=== PATIENT | female | born 1985 | race Caucasian/White ===

== ENCOUNTER → 2017-01-14 | Outpatient (CLI) | payer MEDICAID ==
--- NOTE | 2017-01-14 16:53 | US ---
EXAMINATION TYPE: US transvaginal DATE OF EXAM: 01/14/2017 COMPARISON: NONE CLINICAL HISTORY: Menorrhagia, N92.0 Dysmenn N94.6. Pelvic pain with clots during cycle for a few mon ths TECHNIQUE: TV Date of LMP: 12/30/2016 EXAM MEASUREMENTS: Uterus: 8.7 x 5.3 x 4.4 cm Endometrial Stripe: 1.0 cm Right Ovary: 2.3 x 1.6 x 1.9 cm Left Ovary: 3.3 x 2.7 x 2.4 cm 1. Uterus: Anteverted wnl 2. Endometrium: wnl 3. Right Ovary: wnl 4. Left Ovary: wnl 5. Bilateral Adnexa: wnl 6. Posterior cul-de-sac: wnl IMPRESSION: Negative transvaginal pelvic sonogram. No adnexal mass or free fluid.
== END | disposition home or self-care (01) ==
LOC: RADUSWWP 16:13
PROVIDERS: ATTEND Obstetrics & Gynecology
DX: N94.6 Dysmenorrhea, unspecified (principal); N92.0 Excessive and frequent menstruation with regular cycle
CPT/HCPCS: 76830

== ENCOUNTER → 2017-03-29 | Outpatient (CLI) | payer MEDICAID ==
[2017-03-29 07:25] LABS: Basophils % (A) 0 %; CH 29.4; CHCM 33.7; Eosinophils # (A) 0.3 k/uL (0-0.7); Eosinophils % (A) 3 %; HCT 41.7 % (34.0-46.0); HDW 2.65; HGB 14.2 gm/dL (11.4-16.0); Luc # (Auto) 0.16; Luc % (Auto) 2; Lymphocytes # (A) 2.2 k/uL (1.0-4.8); Lymphocytes % (A) 22 %; MCH 29.8 pg (25.0-35.0); MCV 87.7 fL (80.0-100.0); Mean Platelet Volume 7.2; Monocytes # (A) 0.6 k/uL (0-1.0); Monocytes % (A) 6 %; Neutrophils # (A) 6.6 k/uL (1.3-7.7); Neutrophils % (A) 67 %; RBC 4.76 m/uL (3.80-5.40); RDW 12.9 % (11.5-15.5); WBC 9.8 k/uL (3.8-10.6); WBC (Perox) 10.06
== END | disposition home or self-care (01) ==
LOC: LABPAT 06:44
PROVIDERS: ATTEND Obstetrics & Gynecology
DX: Z01.812 Encounter for preprocedural laboratory examination (principal)
CPT/HCPCS: 85025

== ENCOUNTER 2017-04-07 05:52 | Day surgery (SDC) | payer MEDICAID ==
[2017-04-01 15:18] VITALS: BMI 29.9
--- NOTE | 2017-04-06 07:06 | P.HPOB ---
History of Present Illness H&P Date: 04/06/17 Chief Complaint: Menorrhagia. This patient is a pleasant 31 yr female with long standing menorrhagia and dysmenorrhea. She does not want hormonal treatment and has tried NSAIDs without relief. She is requesting endometrial ablation for treatment. Pelvic ultrasound was normal and her partner has had a vasectomy. Review of Systems Constitutional: Denies chills, Denies fever Cardiovascular: Denies chest pain, Denies shortness of breath Respiratory: Denies cough Gastrointestinal: Denies abdominal pain, Denies diarrhea, Denies nausea, Denies vomiting Genitourinary: Reports as per HPI Menstruation: Reports as per HPI, Reports period heavy Past Medical History Additional Past Medical History / Comment(s): HEAVY PERIODS History of Any Multi-Drug Resistant Organisms: None Reported Past Surgical History: Breast Surgery Additional Past Surgical History / Comment(s): Breast biopsy 2011 Past Anesthesia/Blood Transfusion Reactions: Previous Problems w/ Anesthesia Additional Past Anesthesia/Blood Transfusion Reaction / Comment(s): EMESIS POST EPIDURAL WITH LABOR Past Psychological History: No Psychological Hx Reported Smoking Status: Current every day smoker Past Alcohol Use History: None Reported Past Drug Use History: None Reported - Past Family History Mother Family Medical History: No Reported History Medications and Allergies Home Medications Medication Instructions Recorded Confirmed Type No Known Home Medications [No 04/01/17 04/01/17 History Known Home Medications] Allergies Allergy/AdvReac Type Severity Reaction Status Date / Time amoxicillin Allergy Anaphylaxis Verified 04/01/17 15:13 Exam - OBG Physical Exam Abdomen: bowel sounds normal, no diffuse tenderness, no bruit present, no guarding noted, no hepatomegaly, no splenomegaly, no mass Vulva: both: normal Vagina: normal moisture, no discharge Cervix: no lesion, no discharge Uterus: normal size Results Pelvic ultrasound on January 14 was normal. Assessment and Plan (1) Menorrhagia Narrative/Plan: This is a pleasant 31 yr female with menorrhagia and dysmenorrhea requesting Novasure endometrial ablation for treatment. I have discussed this surgery and risks in detail: infection, bleeding, possible uterine perforation and/or thermal injury. All of the patients questions were answered and a written consent was obtained. Plan is hysteroscopy, D&C and Novasure endometrial ablation. Status: Chronic
[~2017-04-07 05:52] MED LIST: Pre Op ABX Message 1 EACH MISC MISCELLANE ONE
[2017-04-07] MEDS ORDERED: ONDANSETRON 4 MG/2 ML VIAL IVP ONE (06:04)
[2017-04-07] MEDS ORDERED: LACTATED RINGERS 1,000 ML IV SCH (06:04)
[2017-04-07] MEDS ORDERED: DEXAMETHASONE SOD PHOSPHATE 10 MG/ML 1 ML VIAL IV ONE (06:04)
[2017-04-07] MEDS ORDERED: LIDOCAINE 1% 20 ML VIAL (10MG/ML) FOR IV START INTRADERMA ONE (06:30)
[2017-04-07] MEDS ORDERED: PROPOFOL 10 MG/ML 20 ML VIAL IV ONE (07:26)
[2017-04-07] MEDS ORDERED: MIDAZOLAM 2 MG/2 ML VIAL ONE (07:26)
[2017-04-07] MEDS ORDERED: LIDOCAINE 1% INJ 10MG/ML (20 ML MDV) ONE (07:26)
[2017-04-07] MEDS ORDERED: fentaNYL (PF) 50 MCG/ML 2 ML AMP ONE (07:26)
--- NOTE | 2017-04-07 07:58 | P.OP ---
Date of Procedure: 04/07/17 Preoperative Diagnosis: Menorrhagia and dysmenorrhea Postoperative Diagnosis: Same Procedure(s) Performed: #1: Hysteroscopy. #2: Dilation and curettage. #3: NovaSure endometrial ablation. Anesthesia: MAC Surgeon: Caio Herrera Estimated Blood Loss (ml): 10 Urine output (ml): 50 Pathology: other (Uterine curettings) Condition: stable Disposition: PACU Indications for Procedure: Please see dictated H&P for intimate details of this patient's admission. In brief summary this is a pleasant 31-year-old female with long-standing menorrhagia and dysmenorrhea requesting trial of endometrial ablation for treatment. Patient I have discussed the surgery and risks including risks of infection, bleeding, possible uterine perforation, and/or thermal injury. All the patient's questions have been answered and a written consent is obtained. Operative Findings: This patient had a normal-appearing endometrial cavity without evidence of polyps and/or fibroids. Description of Procedure: This patient is taken to the operating room where she is laid in the supine position. She subsequent undergoes general mask anesthesia without incident. With an adequate level of anesthesia she's placed in the dorsal lithotomy position. She has a vaginal perineal prep and drape. Examination under anesthesia shows a mid position uterus of normal size. A weighted speculum was placed in the posterior vagina. I drain the bladder for 50 mL of clear urine. The anterior lip of the cervix is then grasped with an Allis clamp. I gently sound the uterus to 8.2 cm. Gentle dilation is then done of the endocervix to allow the hysteroscope easily and the uterine cavity. Hysteroscopy is performed uterine cavity appears normal without evidence of polyps fibroids or other growths. The hysteroscope was then removed. Cavity length was calculated to be 6 cm. I then gently dilate the cervix to allow a sharp curette easily and uterine cavity a thorough but gentle 4 quadrant curettage is then done. The NovaSure device is then opened appears to be intact. It is seated in place at a length of 6 cm and a width of 3.8 cm. After passing the cavity integrity test, it is enabled at 125 W setting for 73 seconds. NovaSure device is then removed and appears to be intact. Hysteroscopy again is performed and the cavity appears to completely ablated up into the endocervix. With this done the procedure is ended. Allis clamp and weighted speculum was removed. All counts are correct 3. There are no complications. The patient is awakened from anesthesia and taken recovery room in satisfactory condition.
[2017-04-07] MEDS ORDERED: KETOROLAC 30 MG/ML 1 ML VIAL IVP ONE (08:00)
[2017-04-07 08:04] VITALS: TEMP 97.4
[2017-04-07] MEDS: HYDROmorphone 0.5 MG/0.5 ML SYRINGE IVP PRN ×2 (08:10→08:31)
[2017-04-07 08:55] VITALS: BP 102/72; PULSE 63; RESP 18
== END 2017-04-07 09:39 | disposition home or self-care (01) ==
LOC: OR 05:52
PROVIDERS: ATTEND Obstetrics & Gynecology
DX: N92.0 Excessive and frequent menstruation with regular cycle (principal); N94.6 Dysmenorrhea, unspecified; N85.00 Endometrial hyperplasia, unspecified; Z88.1 Allergy status to other antibiotic agents; F17.200 Nicotine dependence, unspecified, uncomplicated; Z79.1 Long term (current) use of non-steroidal anti-inflammatories (NSAID)
CPT/HCPCS: 58563; 81025; 88305; J2250; J1100; J2405; J2001; J3010; J1885; J2704; J1170

== ENCOUNTER → 2018-10-30 | Outpatient (CLI) | payer MEDICAID ==
--- NOTE | 2018-10-31 08:37 | MM ---
Reason for exam: clinical finding. History: Family history of breast cancer in maternal grandmother at age 70. Benign excisional biopsy of the right breast, 2008. Took hormonal contraceptives for 6 months beginning at age 22. Physical Findings: Nurse Summary: 1cm nodule in the right breast at 12 o'clock (nurse elaine). MG 3D Diag Mammo W/Cad NGUYEN Bilateral CC and MLO view(s) were taken. The breast tissue is extremely dense which could obscure a lesion on mammography. Previous mammotome biopsy in the right breast. There is no discrete abnormality including area of concern marked by BB. These results were verbally communicated with the patient and result sheet given to the patient on 10/30/18. ASSESSMENT: Incomplete: need additional imaging evaluation, BI-RAD 0 RECOMMENDATION: Ultrasound of the left breast.
--- NOTE | 2018-10-31 08:38 | USB ---
Reason for exam: additional evaluation requested from abnormal screening. History: Family history of breast cancer in maternal grandmother at age 70. Benign excisional biopsy of the right breast, 2008. Took hormonal contraceptives for 6 months beginning at age 22. US Breast Workup Limited LT Left limited breast ultrasound including focal area of concern, retroareolar and axilla demonstrates a 1.7 x 1.7 x 0.9cm oval, cystic lesion at 12 o'clock and a 1.7 x 1.6 x 1.6cm mixed lesion at 3 o'clock. These results were verbally communicated with the patient and result sheet given to the patient on 10/30/18. ASSESSMENT: Probably benign, BI-RAD 3 RECOMMENDATION: Ultrasound of the left breast in 6 months.
== END | disposition home or self-care (01) ==
LOC: RADMAMWWP 07:00
PROVIDERS: ATTEND Obstetrics & Gynecology
DX: R92.8 Other abnormal and inconclusive findings on diagnostic imaging of breast (principal); N63.10 Unspecified lump in the right breast, unspecified quadrant; N63.20 Unspecified lump in the left breast, unspecified quadrant; N64.4 Mastodynia
CPT/HCPCS: 77062; 77066

== ENCOUNTER → 2019-04-17 | Outpatient (CLI) | payer MEDICAID ==
--- NOTE | 2019-04-17 13:31 | USB ---
Reason for exam: follow-up at short interval from prior study. History: Family history of breast cancer in maternal grandmother at age 70. Benign excisional biopsy of the right breast, 2008. Took hormonal contraceptives for 6 months beginning at age 22. Physical Findings: Nurse Summary: prominent nodularity left upper inner quadrant, all soft, movable (nurse ts). US Breast Limited LT Left limited breast ultrasound including focal area of concern, retroareolar and axilla demonstrates a 2.0 x 1.1 x 1.8cm cystic lesion at 12 o'clock, prior 2.0 x 1.1 x 1.8cm on 10/30/18 and a 0.6 x 0.5 x 0.5cm cystic lesion at 3 o'clock, prior 1.7 x 1.6 x 1.6cm, involuting now. These results were verbally communicated with the patient and result sheet given to the patient on 04/17/19. ASSESSMENT: Benign, BI-RAD 2 RECOMMENDATION: Routine screening mammogram of both breasts at age 38. (or sooner if clinically indicated)
== END | disposition home or self-care (01) ==
LOC: RADUSWWP 08:09
PROVIDERS: ATTEND Surgery
DX: N60.09 Solitary cyst of unspecified breast (principal)

== ENCOUNTER → 2020-08-19 | Outpatient (CLI) | payer MEDICAID ==
[2020-08-19 15:36] LABS: Basophils # (A) 0.04 X 10*3/uL (0.00-0.10); Basophils % (A) 0.5 %; Eosinophils % (A) 2.4 %; HGB 13.3 g/dL (12.0-15.0); Lymphocytes # (A) 2.32 X 10*3/uL (0.90-5.00); MCH 30.5 pg (27.0-32.0); MCV 87.2 fL (80.0-97.0); Monocytes # (A) 0.54 X 10*3/uL (0.20-1.00); Monocytes % (A) 6.5 %; Neutrophils # (A) 5.16 X 10*3/uL (1.80-7.70); Neutrophils % (A) 62.4 %; Platelet Count 383 X 10*3/uL (140-440); RBC 4.36 X 10*6/uL (4.10-5.20); RDW 12.7 % (11.5-14.5); WBC 8.28 X 10*3/uL (4.50-10.00)
[2020-08-19 15:50] LABS: % Iron Saturation 25.41 (12.00-45.00); African American GFR (CKD) 94.7 (60.0-200.0); Albumin 4.9 g/dL (3.80-4.90); Albumin/Globulin Ratio 2.45 (1.60-3.17); Anion Gap 7.2 mmol/L (4.00-12.00); BUN/Creat Ratio 13.33 Ratio (12.00-20.00); Calcium 9.6 mg/dL (8.7-10.3); Carbon Dioxide 25.8 mmol/L (21.6-31.8); Chol/HDL Ratio 4.93; LDL Cholesterol,Calculated 124.4 mg/dL (0.0-131.0); Non-African American GFR(CKD) 81.7 (60.0-200.0); Potassium 4.1 mmol/L (3.5-5.5); Total Bilirubin 0.7 mg/dL (0.3-1.2); Total Protein 6.9 g/dL (6.2-8.2); VLDL Calculation 48.6 mg/dL (5.00-40.00)
[2020-08-19 15:58] LABS: T4, Free (Free Thyroxine) 0.9 ng/dL (0.80-1.80)
[2020-08-19 16:52] LABS: Insulin Level 21.7 mIU/mL (3.0-25.0)
[2020-08-19 17:11] LABS: Hemoglobin A1C 4.8 % (4.0-6.0)
== END | disposition home or self-care (01) ==
LOC: LABWHC1 08:41
PROVIDERS: ATTEND Family Medicine
DX: Z00.00 Encounter for general adult medical examination without abnormal findings (principal); E06.9 Thyroiditis, unspecified; L65.9 Nonscarring hair loss, unspecified
CPT/HCPCS: 36415; 80053; 80061; 82607; 82728; 82746; 83036; 83525; 83540; 83550; 84432; 84439; 84443; 84481; 84630; 85025; 86038; 86039; 86800

== ENCOUNTER → 2020-09-02 | Outpatient (CLI) | payer MEDICAID ==
--- NOTE | 2020-09-02 07:54 | US ---
EXAMINATION TYPE: US thyroid st tissue head/neck DATE OF EXAM: 09/02/2020 COMPARISON: US 02/25/2015 CLINICAL HISTORY: E06.3 AUTOIMMUNE THYROIDITIS. GLAND SIZE: Right Lobe: 5.1 x 1.1 x 1.2 cm Overall Parenchyma: heterogenous Left Lobe: 4.8 x 1.0 x 1.1 cm Overall Parenchyma: heterogeneous Isthmus Thickness: 0.4 cm NODULES RIGHT: # of nodules measured on right: 0 LEFT: # of nodules measured on left: 0 ISTHMUS: # of nodules measured in the isthmus: 0 Bilateral neck scanned, no evidence of lymphadenopathy. Heterogeneous normal-sized thyroid without discrete nodule. IMPRESSION: As above. No significant change from prior.
== END | disposition home or self-care (01) ==
LOC: RADUSWWP 07:08
PROVIDERS: ATTEND Family Medicine
DX: E06.3 Autoimmune thyroiditis (principal)
CPT/HCPCS: 76536

== ENCOUNTER → 2020-09-10 | Outpatient (CLI) | payer MEDICAID ==
[2020-09-10 09:52] LABS: Appearance,Urine Cloudy (Clear); Bilirubin,Urine Negative (Negative); Blood,Urine Small (Negative); Color,Urine Yellow; Glucose,Urine (UA) Negative (Negative); Ketones,Urine Negative (Negative); Leukocyte Esterase,Urine Large (Negative); Mucus,Urine Rare /hpf; Nitrite,Urine Negative (Negative); PH, Urine 5.5 (5.0-8.0); Protein,Urine Negative (Negative); RBC,Urine <1 /hpf (0-5); Specific Gravity,Urine 1.021 (1.001-1.035); Squamous Epithelial Cell,Urine <1 /hpf (0-4); Urobilinogen,Urine <2.0 mg/dL (<2.0); WBC,Urine <1 /hpf (0-5)
[2020-09-10 17:27] LABS: Centromere Antibody <0.2 AI; Centromere Antibody Interp NEGATIVE (NEGATIVE)
[2020-09-10 17:28] LABS: Anti-Smith Ab Interp NEGATIVE (NEGATIVE); Cardiolipin Ab IgG Interp NEGATIVE (NEGATIVE); Cardiolipin IgA Antibody 0.9 U/mL; Cyclic Citrull Pep IgG Unit 2.7 U/mL; Cyclic Citrullinated Pep IgG NEGATIVE (NEGATIVE); DNA Double-Stranded POSITIVE (NEGATIVE); Scleroderma SC-70 Ab <0.2 AI
[2020-09-10 17:29] LABS: Cardiolipin Ab IgM Interp NEGATIVE (NEGATIVE); Cardiolipin IgM Antibody 1.7 U/mL
[2020-09-10 21:13] LABS: Hepatitis B Surface Antigen Non-Reactive (Non-Reactive); Hepatitis C IgG Antibody Non-Reactive (Non-Reactive)
[2020-09-10 22:25] LABS: Protein, Total 6.9 g/dL (6.2-8.2)
[2020-09-10 23:17] LABS: Creatine Kinase 88 U/L (26-186); Rheumatoid Factor, Qnt <4 IU/mL (0-15); Uric Acid 5.6 mg/dL (2.9-7.7)
[2020-09-11 11:31] LABS: Free Kappa Lt Chain Qnt, Serum 0.92 mg/dL (0.33-1.94)
[2020-09-11 11:40] LABS: HLA B27 NEGATIVE
[2020-09-11 13:00] LABS: APTT 51 Sec(s) (<43); APTT 1:1 Mix 40 Sec(s) (<43); Dilute Russell Viper Venom 42 Sec(s) (<44)
[2020-09-11 13:39] LABS: Angiotensin-1 Converting Enz. 34 U/L (8-52)
[2020-09-11 15:10] LABS: C-ANCA <1:20 Titer (<1:20)
[2020-09-12 14:07] LABS: Histone Antibody 0.7 UNITS (<1.0)
[2020-09-12 14:43] LABS: Aldolase 4.6 U/L (1.2-7.6)
[2020-09-15 10:21] LABS: ANA Pattern Homogeneous
[2020-09-15 12:48] LABS: Albumin 4.28 g/dL (3.80-4.90); Gamma Globulin 0.88 g/dL (0.70-1.50)
== END | disposition home or self-care (01) ==
LOC: LABWHC1 07:14
PROVIDERS: ATTEND Internal Medicine Rheumatology
DX: R76.8 Other specified abnormal immunological findings in serum (principal)
CPT/HCPCS: 36415; 81001; 82085; 82164; 82306; 82550; 83516; 83520; 83883; 84165; 84550; 85613; 85730; 85732; 86038; 86039; 86147; 86160; 86162; 86200; 86225; 86235; 86255; 86334; 86431; 86803; 86812; 87340

== ENCOUNTER → 2020-09-12 | Outpatient (CLI) | payer MEDICAID ==
--- NOTE | 2020-09-12 13:28 | MM ---
Reason for exam: clinical finding. Last mammogram was performed 1 year and 10 months ago. History: Family history of breast cancer in maternal grandmother at age 70. Benign excisional biopsy of the right breast, 2008. Took hormonal contraceptives for 6 months beginning at age 22. Indicated problem(s): lump or thickening and pain in the left breast. Physical Findings: Nurse Summary: 1-2cm nodule in the left breast at 1-2 o'clock (nurse db). MG 3D Diag Mammo W/Cad NGUYEN Bilateral CC and MLO view(s) were taken. Prior study comparison: October 30, 2018, bilateral MG 3d diag mammo w/cad NGUYEN. The breast tissue is heterogeneously dense. This may lower the sensitivity of mammography. Finding: There is a typically benign 23 mm equal density (isodense), circumscribed mass located 4 cm from the nipple in the upper outer quadrant of the left breast. Previous mammotome biopsy in the right breast. New finding since October 30, 2018. These results were verbally communicated with the patient and result sheet given to the patient on 09/12/20. ASSESSMENT: Incomplete: need additional imaging evaluation, BI-RAD 0 RECOMMENDATION: Ultrasound of the left breast.
--- NOTE | 2020-09-12 13:32 | USB ---
Reason for exam: additional evaluation requested from abnormal screening. History: Family history of breast cancer in maternal grandmother at age 70. Benign excisional biopsy of the right breast, 2008. Took hormonal contraceptives for 6 months beginning at age 22. US Breast Limited LT Technologist: Ericka Sylvester Left limited breast ultrasound including focal area of concern, retroareolar and axilla demonstrates a 2.6 x 1.9 x 1.3cm oval, cystic lesion at 12 o'clock, septated versus cluster for which a cyst aspiration versus biopsy is recommended, a 2.3 x 2.1 x 1.6cm simple cystic lesion at 1 o'clock, a 0.8 x 0.6 x 0.4cm cystic cluster at 2 o'clock, a 0.8 x 1.0 x 0.7cm cystic lesion at 3 o'clock and a 0.9 x 1.2 x 0.6cm simple cystic lesion at 2 o'clock. Scanned 12-3 o'clock. These results were verbally communicated with the patient and result sheet given to the patient on 09/12/20. ASSESSMENT: Suspicious, BI-RAD 4 RECOMMENDATION: Aspiration of the left breast. (or) Ultrasound core biopsy of the left breast. Called Dr. Herrera's office with mammographic findings and has scheduled an appointment for the patient for 10/02/[address] Baugh. Biopsy scheduled for 09/25/20 at 10:30. PRELIMINARY REPORT CALLED AND FAXED TO DR. BAUGH ON 09/12/20.
== END | disposition home or self-care (01) ==
LOC: RADMAMWWP 07:34
PROVIDERS: ATTEND Obstetrics & Gynecology
DX: N63.21 Unspecified lump in the left breast, upper outer quadrant (principal); N60.02 Solitary cyst of left breast; Z80.3 Family history of malignant neoplasm of breast
CPT/HCPCS: 77062; 77066

== ENCOUNTER → 2020-09-25 | Day surgery (SDC) | payer MEDICAID ==
[2020-09-25 09:46] VITALS: RESP 16
[2020-09-25 11:35] VITALS: BP 137/78; PULSE 56; TEMP 98.3
--- NOTE | 2020-09-25 12:34 | USB ---
EXAMINATION TYPE: US breast aspiration single LT DATE OF EXAM: 09/25/2020 CLINICAL HISTORY: R92.8 ABN MAMMO. TECHNIQUE: Ultrasound guided vaccuum assisted cyst aspiration of left breast. COMPARISON: 09/12/20 US FINDINGS: The ultrasound guided core cyst aspiration was explained to the patient. The risks, benefits, alternatives were discussed. An informed consent was then obtained. Timeout was performed. The patient was placed in supine positioning for imaging and for the procedure. The overlying skin was prepped with betadine and sterilely draped in usual sterile fashion. Lidocaine 1% was used as anesthetic into the skin and deeper breast tissue up to area of concern in the breast. A small skin derek was made with surgical scalpel. Under ultrasound guidance, an 18 gauge vacuum assisted device was used to obtain left cyst aspiration. A biopsy clip was left in lesion. Wing clip was utilized. Good hemostasis was obtained with direct pressure. Discharge instructions were discussed with the patient. The patient will follow up with the referring physician for results. Postprocedure mammogram: The patient was transferred to mammography for physician ordered post procedure mammogram for clip placement verification. The clip is in the expected region of the cyst aspiration. The patient tolerated the procedure well without any immediate complication. The patient was discharged to home in stable condition. IMPRESSION: 1. Successful ultrasound guided cyst aspiration left breast. Recommendations: 1. Recommendations are pending pathology results. Pathology Results: Benign LEFT BREAST, TWELVE O'CLOCK, ULTRASOUND GUIDED CYST ASPIRATION: Clusters of bland apocrine lining cells and ductal cells consistent with fibrocystic changes. Recommendation Follow up ultrasound of the left breast in 6 months. MAAME
--- NOTE | 2020-09-29 08:41 | MM ---
Reason for exam: additional evaluation requested from abnormal screening. Last mammogram was performed less than 1 month ago. History: Family history of breast cancer in maternal grandmother at age 70. Benign excisional biopsy of the right breast, 2008. Took hormonal contraceptives for 6 months beginning at age 22. MG Diagnostic Mammo LT Wo CAD CC and LM view(s) were taken of the left breast. Prior study comparison: September 12, 2020, bilateral MG 3d diag mammo w/cad NGUYEN. October 30, 2018, bilateral MG 3d diag mammo w/cad NGUYEN. ASSESSMENT: Post procedure mammogram for marker placement RECOMMENDATION: Ultrasound of the left breast in 6 months. PENDING PATHOLOGY RESULTS.
== END ==
LOC: RADUSWWP 09:29
PROVIDERS: ATTEND Surgery
DX: N60.12 Diffuse cystic mastopathy of left breast (principal); Z80.3 Family history of malignant neoplasm of breast
CPT/HCPCS: 88108; 88305; 77065; 76942; 19000; A4648; J2001

== ENCOUNTER → 2020-11-26 | Outpatient (CLI) | payer MEDICAID ==
[2020-11-26 16:45] LABS: T4, Free (Free Thyroxine) 1.1 ng/dL (0.80-1.80)
== END | disposition home or self-care (01) ==
LOC: LABWHC1 07:56
PROVIDERS: ATTEND Family Medicine
DX: E06.9 Thyroiditis, unspecified (principal)
CPT/HCPCS: 36415; 84439; 84443; 84481

== ENCOUNTER → 2020-12-24 | Outpatient (CLI) | payer MEDICAID ==
[2020-12-24 15:08] LABS: Appearance,Urine Clear (Clear); Bacteria,Urine Rare /hpf; Bilirubin,Urine Negative (Negative); Blood,Urine Negative (Negative); Color,Urine Yellow; Glucose,Urine (UA) Negative (Negative); Ketones,Urine Negative (Negative); Leukocyte Esterase,Urine Large (Negative); Nitrite,Urine Negative (Negative); Protein,Urine Negative (Negative); RBC,Urine 1 /hpf (0-5); Specific Gravity,Urine 1.016 (1.001-1.035); Squamous Epithelial Cell,Urine 4 /hpf (0-4); Urobilinogen,Urine <2.0 mg/dL (<2.0); WBC,Urine 1 /hpf (0-5)
[2020-12-24 17:36] LABS: Basophils # (A) 0.04 X 10*3/uL (0.00-0.10); Basophils % (A) 0.4 %; Eosinophils # (A) 0.31 X 10*3/uL (0.04-0.35); HCT 39.1 % (37.2-46.3); HGB 13.5 g/dL (12.0-15.0); Lymphocytes # (A) 3.06 X 10*3/uL (0.90-5.00); Lymphocytes % (A) 29.3 %; MCHC 34.5 g/dL (32.0-37.0); MCV 86.9 fL (80.0-97.0); Mean Platelet Volume 10.2 fL (9.5-12.2); Monocytes # (A) 0.76 X 10*3/uL (0.20-1.00); Monocytes % (A) 7.3 %; Neutrophils # (A) 6.24 X 10*3/uL (1.80-7.70); Neutrophils % (A) 59.5 %; Platelet Count 398 X 10*3/uL (140-440); RDW 12.8 % (11.5-14.5); WBC 10.46 X 10*3/uL (4.50-10.00)
[2020-12-24 19:18] LABS: Erythrocyte Sedimentation Rate 15 mm/Hr (0-20)
[2020-12-24 20:49] LABS: Anti-Smith Ab Interp NEGATIVE (NEGATIVE); DNA Double-Stranded POSITIVE (NEGATIVE); Scleroderma SC-70 Ab <0.2 AI
[2020-12-24 20:54] LABS: Cardiolipin Ab IgG Interp NEGATIVE (NEGATIVE); Cardiolipin Ab IgM Interp NEGATIVE (NEGATIVE); Cardiolipin IgA Antibody <2.0 U/mL; Cardiolipin IgM Antibody 2.2 U/mL; Cyclic Citrull Pep IgG Unit 2.5 U/mL; Cyclic Citrullinated Pep IgG NEGATIVE (NEGATIVE)
[2020-12-24 23:42] LABS: Protein, Total 7.2 g/dL (6.2-8.2)
[2020-12-25 00:01] LABS: African American GFR (CKD) 128.3 (60.0-200.0); Albumin 4.8 g/dL (3.80-4.90); Albumin/Globulin Ratio 1.92 (1.60-3.17); Anion Gap 12.3 mmol/L (4.00-12.00); BUN/Creat Ratio 15.71 Ratio (12.00-20.00); C Reactive Protein 0.4 mg/dL (0.0-0.8); Calcium 9.8 mg/dL (8.7-10.3); Carbon Dioxide 21.7 mmol/L (21.6-31.8); Globulin 2.5 g/dL (1.6-3.3); Non-African American GFR(CKD) 110.7 (60.0-200.0); Potassium 4.3 mmol/L (3.5-5.5); Total Bilirubin 0.7 mg/dL (0.3-1.2); Total Protein 7.3 g/dL (6.2-8.2)
[2020-12-25 00:09] LABS: T4, Free (Free Thyroxine) 1.2 ng/dL (0.80-1.80)
[2020-12-25 00:42] LABS: Hepatitis B Surface Antigen Non-Reactive (Non-Reactive); Hepatitis C IgG Antibody Non-Reactive (Non-Reactive)
[2020-12-25 11:22] LABS: APTT 41 Sec(s) (<43); Dilute Russell Viper Venom 41 Sec(s) (<44)
[2020-12-25 13:14] LABS: HLA B27 NEGATIVE
[2020-12-25 13:29] LABS: ANA Pattern Homogeneous
[2020-12-25 13:41] LABS: C-ANCA <1:20 Titer (<1:20)
[2020-12-25 13:55] LABS: Free Kappa Lt Chain Qnt, Serum 0.99 mg/dL (0.33-1.94)
[2020-12-25 19:36] LABS: Vitamin D, 1, 25-Dihydroxy 71 pg/mL (20 - 79)
== END | disposition home or self-care (01) ==
LOC: LABWHC1 11:22
PROVIDERS: ATTEND Internal Medicine Rheumatology
DX: R76.8 Other specified abnormal immunological findings in serum (principal)
CPT/HCPCS: 36415; 80053; 81001; 82085; 82164; 82306; 82550; 82652; 83516; 83520; 83883; 84165; 84439; 84443; 84550; 85025; 85613; 85652; 85730; 86038; 86039; 86140; 86147; 86160; 86162; 86200; 86225; 86235; 86255; 86334; 86431; 86803; 86812; 87340

== ENCOUNTER → 2021-01-08 | Outpatient (CLI) | payer MEDICAID ==
[2021-01-08 14:44] LABS: Basophils # (A) 0.06 X 10*3/uL (0.00-0.10); Basophils % (A) 0.6 %; Eosinophils # (A) 0.23 X 10*3/uL (0.04-0.35); Eosinophils % (A) 2.1 %; HCT 40.4 % (37.2-46.3); HGB 13.6 g/dL (12.0-15.0); Lymphocytes % (A) 26.1 %; MCHC 33.7 g/dL (32.0-37.0); Mean Platelet Volume 10.1 fL (9.5-12.2); Monocytes # (A) 0.77 X 10*3/uL (0.20-1.00); Monocytes % (A) 7.2 %; Neutrophils # (A) 6.77 X 10*3/uL (1.80-7.70); Neutrophils % (A) 63.3 %; Platelet Count 360 X 10*3/uL (140-440); RBC 4.54 X 10*6/uL (4.10-5.20); RDW 12.8 % (11.5-14.5); WBC 10.71 X 10*3/uL (4.50-10.00)
== END | disposition home or self-care (01) ==
LOC: LABWHC1 08:42
PROVIDERS: ATTEND Family Medicine
DX: D72.829 Elevated white blood cell count, unspecified (principal)
CPT/HCPCS: 36415; 85025

== ENCOUNTER → 2021-05-15 | Outpatient (CLI) | payer MEDICAID ==
[2021-05-16 06:08] LABS: T4, Free (Free Thyroxine) 1.17 ng/dL (0.800-1.800)
== END | disposition home or self-care (01) ==
LOC: LABWHC1 13:39
PROVIDERS: ATTEND Family Medicine
DX: E06.9 Thyroiditis, unspecified (principal)
CPT/HCPCS: 36415; 84439; 84443; 84481

== ENCOUNTER → 2021-08-18 | Outpatient (CLI) | payer MEDICAID ==
[2021-08-18 14:40] LABS: Basophils # (A) 0.05 X 10*3/uL (0.00-0.10); Basophils % (A) 0.5 %; Eosinophils # (A) 0.29 X 10*3/uL (0.04-0.35); Eosinophils % (A) 2.7 %; HCT 40.2 % (37.2-46.3); HGB 13.4 g/dL (12.0-15.0); Immature Grans, Automated 0.6 %; Lymphocytes # (A) 2.82 X 10*3/uL (0.90-5.00); Lymphocytes % (A) 26.1 %; MCH 29.6 pg (27.0-32.0); MCHC 33.3 g/dL (32.0-37.0); MCV 88.9 fL (80.0-97.0); Mean Platelet Volume 10.2 fL (9.5-12.2); Monocytes # (A) 0.74 X 10*3/uL (0.20-1.00); Monocytes % (A) 6.8 %; NRBC Per 100 WBC 0 /100 WBCS (0.0-0.0); Neutrophils # (A) 6.84 X 10*3/uL (1.80-7.70); Neutrophils % (A) 63.3 %; Platelet Count 381 X 10*3/uL (140-440); RBC 4.52 X 10*6/uL (4.10-5.20); RDW 12.8 % (11.5-14.5); WBC 10.81 X 10*3/uL (4.50-10.00)
[2021-08-18 15:00] LABS: ALT 37 U/L (8-44); AST 28 U/L (13-35); African American GFR (CKD) 101.5 (60.0-200.0); Albumin 4.5 g/dL (3.8-4.9); Albumin/Globulin Ratio 1.69 (1.60-3.17); Alkaline Phosphatase 57 U/L (41-126); BUN/Creat Ratio 18.46 Ratio (12.00-20.00); Blood Urea Nitrogen 15.6 mg/dL (9.0-27.0); Calcium 9.5 mg/dL (8.7-10.3); Carbon Dioxide 18.4 mmol/L (20.0-27.5); Chloride 102 mmol/L (96-109); Chol/HDL Ratio 4.74 Ratio; Globulin 2.7 g/dL (1.6-3.3); Glucose 87 mg/dL (70-110); LDL Cholesterol,Calculated 121.3 mg/dL (0.0-131.0); Non-African American GFR(CKD) 87.5 (60.0-200.0); Potassium 4.4 mmol/L (3.5-5.5); Sodium 136 mmol/L (135-145); Total Protein 7.2 g/dL (6.2-8.2)
[2021-08-18 16:43] LABS: Thyroid Peroxidase Antibodies 12.7 U/mL (0.0-33.0)
== END | disposition home or self-care (01) ==
LOC: LABWHC1 07:15
PROVIDERS: ATTEND Nurse Practitioner Family
DX: Z00.01 Encounter for general adult medical examination with abnormal findings (principal); E06.9 Thyroiditis, unspecified; Z68.34 Body mass index [BMI] 34.0-34.9, adult
CPT/HCPCS: 36415; 80053; 80061; 82306; 83036; 84439; 84443; 84481; 85025; 86376; 86800

== ENCOUNTER → 2021-10-22 | Outpatient (CLI) | payer MEDICAID ==
[2021-10-22 22:38] LABS: Basophils # (A) 0.06 X 10*3/uL (0.00-0.10); Basophils % (A) 0.5 %; Eosinophils # (A) 0.28 X 10*3/uL (0.04-0.35); Eosinophils % (A) 2.5 %; HCT 41.4 % (37.2-46.3); HGB 13.9 g/dL (12.0-15.0); Immature Grans, Automated 0.4 %; Lymphocytes # (A) 3.33 X 10*3/uL (0.90-5.00); Lymphocytes % (A) 29.2 %; MCH 29.8 pg (27.0-32.0); MCHC 33.6 g/dL (32.0-37.0); MCV 88.7 fL (80.0-97.0); Mean Platelet Volume 9.9 fL (9.5-12.2); Monocytes # (A) 0.74 X 10*3/uL (0.20-1.00); Monocytes % (A) 6.5 %; NRBC Per 100 WBC 0 /100 WBCS (0.0-0.0); Neutrophils # (A) 6.95 X 10*3/uL (1.80-7.70); Neutrophils % (A) 60.9 %; Platelet Count 417 X 10*3/uL (140-440); RBC 4.67 X 10*6/uL (4.10-5.20); RDW 12.7 % (11.5-14.5); WBC 11.41 X 10*3/uL (4.50-10.00)
== END | disposition home or self-care (01) ==
LOC: LABWHC1 15:03
PROVIDERS: ATTEND Nurse Practitioner Family
DX: D72.829 Elevated white blood cell count, unspecified (principal)
CPT/HCPCS: 36415; 85025

== ENCOUNTER → 2021-12-24 | Outpatient (CLI) | payer MEDICAID ==
[2021-12-24 14:29] LABS: Appearance,Urine Cloudy (Clear); Bilirubin,Urine Negative (Negative); Blood,Urine Negative (Negative); Color,Urine Yellow; Glucose,Urine (UA) Negative (Negative); Hyaline Casts,Urine 1 /lpf (0-2); Ketones,Urine Trace (Negative); Leukocyte Esterase,Urine Small (Negative); Mucus,Urine Many /hpf; Nitrite,Urine Negative (Negative); PH, Urine 5.5 (5.0-8.0); Protein,Urine 1+ (Negative); RBC,Urine 2 /hpf (0-5); Specific Gravity,Urine 1.044 (1.001-1.035); Squamous Epithelial Cell,Urine 9 /hpf (0-4); WBC,Urine 2 /hpf (0-5)
[2021-12-24 15:35] LABS: Creatinine,Urine Random 465.7 mg/dL
[2021-12-24 18:37] LABS: Basophils # (A) 0.06 X 10*3/uL (0.00-0.10); Basophils % (A) 0.5 %; Eosinophils # (A) 0.19 X 10*3/uL (0.04-0.35); Eosinophils % (A) 1.5 %; HCT 37.1 % (37.2-46.3); HGB 12.8 g/dL (12.0-15.0); Immature Grans, Automated 0.5 %; Lymphocytes # (A) 2.98 X 10*3/uL (0.90-5.00); Lymphocytes % (A) 23.3 %; MCH 30.5 pg (27.0-32.0); MCHC 34.5 g/dL (32.0-37.0); MCV 88.3 fL (80.0-97.0); Mean Platelet Volume 10.2 fL (9.5-12.2); Monocytes # (A) 0.87 X 10*3/uL (0.20-1.00); Monocytes % (A) 6.8 %; NRBC Per 100 WBC 0 /100 WBCS (0.0-0.0); Neutrophils # (A) 8.61 X 10*3/uL (1.80-7.70); Neutrophils % (A) 67.4 %; Platelet Count 401 X 10*3/uL (140-440); RDW 12.6 % (11.5-14.5); WBC 12.78 X 10*3/uL (4.50-10.00)
[2021-12-24 18:49] LABS: African American GFR (CKD) 127.4 (60.0-200.0); BUN/Creat Ratio 17.57 Ratio (12.00-20.00); Blood Urea Nitrogen 12.3 mg/dL (9.0-27.0); C Reactive Protein 0.6 mg/dL (0.00-0.80); Calcium 9.5 mg/dL (8.7-10.3); Non-African American GFR(CKD) 109.9 (60.0-200.0)
[2021-12-24 19:21] LABS: Erythrocyte Sedimentation Rate 7 mm/Hr (0-20)
[2021-12-24 20:30] LABS: DNA Double-Stranded POSITIVE (NEGATIVE)
== END | disposition home or self-care (01) ==
LOC: LABWHC1 12:31
PROVIDERS: ATTEND Internal Medicine Rheumatology
DX: M32.9 Systemic lupus erythematosus, unspecified (principal)
CPT/HCPCS: 36415; 80048; 81001; 82570; 84156; 84450; 84460; 85025; 85652; 86140; 86160; 86162; 86225

== ENCOUNTER → 2024-01-10 | Outpatient (CLI) | payer MEDICAID ==
[2024-01-10 19:51] LABS: T4, Free (Free Thyroxine) 1.33 ng/dL (0.80-1.80)
== END | disposition home or self-care (01) ==
LOC: LABWHC1 15:16
PROVIDERS: ATTEND Family Medicine
DX: E06.9 Thyroiditis, unspecified (principal)
CPT/HCPCS: 36415; 84439; 84443; 84481

== ENCOUNTER → 2024-05-02 | Outpatient (CLI) | payer MEDICAID ==
--- NOTE | 2024-05-02 11:02 | MM ---
Reason for Exam: Screening (asymptomatic). Last mammogram was performed 3 year(s) and 7 month(s) ago. Patient History: Menarche at age 11. First Full-Term at age 21. Hormonal Contraceptives for 6 months from age 22 until age 22. 2008, Benign Excisional Biopsy on the right side. 09/25/2020, Benign Cyst Aspiration on the left side. Maternal grandmother had breast cancer, age 70. Maternal aunt had breast cancer, age 65. Risk Values: Dulce 5 year model risk: 0.8%. NCI Lifetime model risk: 11.0%. Prior Study Comparison: 10/30/2018 Bilateral Diagnostic Mammogram, [facility]. 09/12/2020 Bilateral Diagnostic Mammogram, [facility]. 09/25/2020 Left Diagnostic Mammogram, [facility]. Tissue Density: The breasts are heterogeneously dense, which may obscure small masses. Findings: Analyzed By CAD. There is no suspicious group of microcalcifications or new suspicious mass in either breast. Overall Assessment: Benign, BI-RAD 2 Management: Screening Mammogram of both breasts in 1 year. . Patient should continue monthly self-breast exams. A clinical breast exam by your physician is recommended on an annual basis. This exam should not preclude additional follow-up of suspicious palpable abnormalities. Note on Dulce scores and lifetime risk: 1. A Dulce score greater than 3% is considered moderate risk. If this is the case, consider specialist referral to assess eligibility for a risk reducing agent. 2. If overall lifetime risk for the development of breast cancer is 20% or higher, the patient may qualify for future screening with alternating mammogram and breast MRI. [facility], , 05/02/2024 10:59 AM. Electronically signed and approved by: Vasu Azevedo M.D. [facility]
== END | disposition home or self-care (01) ==
LOC: RADMAMWWP 07:58
PROVIDERS: ATTEND Obstetrics & Gynecology
CPT/HCPCS: 77063; 77067

== ENCOUNTER → 2024-05-17 | Outpatient (CLI) | payer MEDICAID ==
[2024-05-17 15:32] LABS: Basophils # (A) 0.06 X 10*3/uL (0.00-0.10); Basophils % (A) 0.6 %; Eosinophils % (A) 3.1 %; HCT 42.7 % (37.2-46.3); HGB 14.4 g/dL (12.0-15.0); Lymphocytes # (A) 2.44 X 10*3/uL (0.90-5.00); Lymphocytes % (A) 25.6 %; MCH 29.3 pg (27.0-32.0); MCHC 33.7 g/dL (32.0-37.0); MCV 86.8 FL (80.0-97.0); Mean Platelet Volume 9.7 FL (9.5-12.2); Monocytes # (A) 0.62 X 10*3/uL (0.20-1.00); Monocytes % (A) 6.5 %; NRBC Per 100 WBC 0 X 10*3/uL (0.00-0.01); Neutrophils # (A) 6.07 X 10*3/uL (1.80-7.70); Neutrophils % (A) 63.7 %; Platelet Count 387 X 10*3/uL (140-440); RBC 4.92 X 10*6/uL (4.10-5.20); RDW 12.8 % (11.5-14.5); WBC 9.54 X 10*3/uL (4.50-10.00)
[2024-05-17 15:41] LABS: ALT 31 U/L (8-44); AST 20 U/L (13-35); Albumin 4.4 g/dL (3.8-4.9); Albumin/Globulin Ratio 1.83 Ratio (1.60-3.17); Alkaline Phosphatase 68 U/L (41-126); BUN/Creat Ratio 16.88 Ratio (12.00-20.00); Blood Urea Nitrogen 13.5 mg/dL (9.0-27.0); Calcium 9.4 mg/dL (8.7-10.3); Carbon Dioxide 17.7 mmol/L (21.6-31.8); Chloride 106 mmol/L (96-109); Chol/HDL Ratio 4.94 Ratio; Globulin 2.4 g/dL (1.6-3.3); Glucose 105 mg/dL (70-110); LDL Cholesterol,Calculated 147.1 mg/dL (0.0-131.0); Potassium 4.7 mmol/L (3.5-5.5); Sodium 137 mmol/L (135-145); T4, Free (Free Thyroxine) 0.87 ng/dL (0.80-1.80); Total Bilirubin 0.4 mg/dL (0.3-1.2); Total Protein 6.8 g/dL (6.2-8.2)
== END | disposition home or self-care (01) ==
LOC: LABWHC1 08:11
PROVIDERS: ATTEND Family Medicine
DX: Z00.01 Encounter for general adult medical examination with abnormal findings (principal); E06.9 Thyroiditis, unspecified; E55.9 Vitamin D deficiency, unspecified
CPT/HCPCS: 36415; 80053; 80061; 82306; 83036; 83525; 84439; 84443; 84481; 85025